=== PATIENT | male | born 1965 | race Caucasian/White ===

== ENCOUNTER → 2017-05-07 08:08 | Outpatient (CLI) | payer MEDICARE, MEDICAID ==
--- NOTE | 2017-05-09 08:51 | EMG ---
PATIENT:HEENA MORENO DATE OF SERVICE: 05/07/17 MEDICAL RECORD: [id number] DATE OF : 67 LOCATION: [facility] ADMISSION DATE: REFERRING PHYSICIAN: JOHN BEDOYA MD INTERPRETING PHYSICIAN: CAILIN LEWIS MD DATE OF SERVICE: 05/07/2017 Referred as an outpatient by Dr. Bedoya. ELECTROMYOGRAPHIC DATA: Electromyographic examination is limited to both lower extremities. In the right lower extremity, right peroneal motor stimulation elicits no reliable response. Right tibial motor stimulation elicits a compound motor action potential with a distal latency of 3.6 milliseconds, peak amplitude of 5 millivolts, and calculated conduction velocity of 39 meters per second. Antidromic right sural sensory stimulation elicits no reliable response. The right lower extremity H reflex recording at gastrocsoleus is absent. In the left lower extremity, left peroneal motor stimulation elicits a compound motor action potential with a distal latency of 3.9 milliseconds, peak amplitude of 3 millivolts, and calculated conduction velocity of 39 meters per second. Left tibial motor stimulation elicits a compound motor action potential with a distal latency of 4.5 milliseconds, peak amplitude of 5 millivolts, and calculated conduction velocity of 38 meters per second. Antidromic left sural sensory stimulation elicits no reliable response. The left lower extremity H reflex recording at gastrocsoleus is absent. Needle electrode examination is limited to both lower extremities as well. Muscles interrogated include the abductor hallucis, extensor digitorum brevis, abductor digiti quinti, tibialis anterior, medial gastrocnemius, vastus lateralis, semitendinosus, and gluteus jennifer. The intrinsic foot muscles as well as the distal leg muscles are severely atrophic. Insertional activity is markedly reduced in the intrinsic foot muscles bilaterally. In the tibialis anterior and medial gastrocnemius, there is marked increased insertional activity with positive sharp waves, complex repetitive discharges, and rare myotonic discharges in both tibialis anterior and to a lesser extent the medial gastrocnemius bilaterally. Insertional activity and spontaneous activity is essentially normal on proximal musculature. Motor unit potential morphology and the pattern of motor unit potential firing and recruitment demonstrates an absence of motor units firing at the intrinsic foot muscles, particularly in the right lower extremity and to a lesser extent in the left lower extremity. What muscles are observed are of low amplitude and polyphasic short-duration motor units. Same is true in the tibialis anterior and medial gastrocnemius bilaterally with low amplitude polyphasic short-duration motor units indicative of a myelopathic motor unit potential. INTERPRETATION: Electromyographic examination of both lower extremities was complex. 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 The study was requested to help sort out a new ELECTROMYGRAM/NERVE CONDUCTION [id number] HEENA MORENO weakness in the right foot and ankle. Because of the severity of underlying changes in both lower extremities, this study is not capable of adding further to that differential diagnosis. TRANSINT:[id number] Voice Confirmation ID: [id number] DOCUMENT ID: [id number] CAILIN LEWIS MD at 0851 CC: [id number] DICTATION DATE: 05/07/17930 HEEL ROOM SUPERVISOR: 05/07/17 1242 DEP CLI 05/07/17 [facility] [address] [place] [address]
== END | disposition home or self-care (01) ==
LOC: D.CN 08:08
DX: G71.0 Muscular dystrophy (principal)

== ENCOUNTER 2017-09-19 18:46 | Emergency (ER) | payer MEDICARE, MEDICAID | END 2017-09-20 00:12 | disposition home or self-care (01) | LOC: D.ER 18:46 | DX: K59.00 Constipation, unspecified (principal); K64.9 Unspecified hemorrhoids; F17.200 Nicotine dependence, unspecified, uncomplicated ==

== ENCOUNTER → 2018-09-04 13:02 | Outpatient (CLI) | payer MEDICARE, MEDICAID | END | disposition home or self-care (01) | LOC: D.CT 13:02 | DX: K63.5 Polyp of colon (principal) ==

== ENCOUNTER 2018-10-21 10:35 | Day surgery (SDC) | payer MEDICARE, MEDICAID ==
[~2018-10-21] VITALS: Ht 177.8 cm; Wt 74.4 kg
[2018-10-21] MEDS ORDERED: HYDROCODON-ACE1 EA10 PO (11:14)
[2018-10-21 11:22] VITALS: BP 134/68; Ht 177.8 cm; Wt 74.4 kg
--- NOTE | 2018-10-21 14:10 | NUR ---
[id number] 8CC EPINEPHERINE CUTANEOUS IN COLON, 10CC ELEVIEW CUTANEOUS IN COLON.
--- NOTE | 2018-10-23 08:56 | OP ---
PATIENT NAME: HEENA MORENO MEDICAL RECORD: [id number] :67 LOCATION:D.OPS ADMISSION DATE: SURGEON: JESSICA IGNACIO MD DATE OF OPERATION: 10/21/2018 PRINCIPAL DIAGNOSIS: Multiple complex colon polyps. POSTOPERATIVE DIAGNOSIS: Multiple complex colon polyps. Please see description below. PROCEDURES: 1. Total colonoscopy to cecum. 2. Endoscopic mucosal resection polypectomies times 2. Epinephrine injection and Eleview injection were performed prior to snaring the pedunculated polyps. 3. Hot biopsy forceps polypectomy times 1. 4. Application of endoscopic clips times 1 for hemorrhage control. 5. Ablation of 5 polyps utilizing the argon plasma director mission with the right colon setting in the forced mode. One of these was within the appendiceal orifice. SURGEON: Jessica Ignacio MD BOOM CRANE OPERATOR: None. BLOOD LOSS: 50 cc. ANESTHESIA: IV sedation. COMPLICATIONS: None. The risks, possible complications, and alternatives to the procedure were explained to the patient. He elects to proceed. ENDOSCOPIC COURSE: The patient was conveyed to endoscopy suite electively on 10/21/2018. IV sedation was induced by the anesthesia staff. The patient was placed in the Licona position. A digital rectal examination was performed. The prostate was symmetric, slightly enlarged, and without nodules. A colonoscope was inserted through the anus. Immediately, we identified a lot of corn within the rectum, so I knew that the prep was going to be inadequate. I was able to advance the endoscope into the cecum however. Upon withdrawal, I irrigated and aspirated extensively. Normal imaging as well as narrow band imaging was utilized. I dragged the folds. Within the appendix, I tried to grasp a polyp that was actually within the lumen of the appendix. I was unable to do this as I wanted to perform a hot biopsy forceps polypectomy. Instead, I intended to ablate the polyp and see if I could lift it up to determine how large the polyp was. I utilized the argon plasma director mission; however, I could not get the polyp to lift up out of the appendiceal orifice. This polyp will need to be removed during a laparoscopic appendectomy procedure. I then continued to withdraw the endoscope. I irrigated and aspirated extensively. The pullback was greater than a 30-minute pullback. One small polyp was identified and was removed utilizing the hot biopsy forceps polypectomy technique. This was an 8-mm polyp. There were 2 much larger polyps. The 30-cm polyp was the smaller of two and was 2.5-cm pedunculated polyp. I advanced a sclerotherapy needle and injected epinephrine submucosally. I then injected Eleview submucosally with the same sclerotherapy needle. I then advanced a snare. I was able to place a snare OPERATIVE REPORT [id number] HEENA MORENO around the base of the polyp and snare the polyp off utilizing the coagulation and then the cut setting. There was a little bit of remaining polypoid tissue at the base of the polyp and this was ablated with the argon plasma director mission. I advanced an endoscopic retrieval net and was able to retrieve the polyp and withdraw it through the anus. I then readvanced the endoscope. The larger of the 2 polyps was a 3.0 cm pedunculated polyp. I injected through the sclerotherapy needle epinephrine submucosally and then Eleview submucosally. I then advanced an endoscopic snare around the stalk and utilizing the coagulation setting and then the cut setting, I was able to amputate the polyp. There was bleeding from the stump and this was controlled with the application of a single endoscopic clip. The endoscopic retrieval net was advanced. I was able to get the polyp into the bag and withdraw it out through the anus. I then readvanced the endoscope. There were 4 more small sessile polyps, which I elected to ablate with the argon plasma director mission. A retroflexed view was obtained in the rectum. I then unretroflexed the scope and removed it under direct vision. I will see the patient in my office in 2-3 weeks. I will discuss laparoscopic appendectomy with him. This will be laparoscopic appendectomy versus laparoscopic cecectomy in order to remove this appendiceal orifice polyp. I will plan for his next colonoscopy with the argon plasma director mission to take place in 2 years. TRANSINT:[id number] Voice Confirmation ID: [id number] DOCUMENT ID: [id number] JESSICA IGNACIO MD at 0856 CC: GLYNN SUN MD and JOHN BEDOYA MD [id number] DICTATION DATE: 10/21/18 1436 ESCROW CLERK: 10/21/18 1905 [facility] 10/21/18 [facility] [address] [place] [address]
== END 2018-10-21 15:37 | disposition home or self-care (01) ==
LOC: D.OPS 10:35
PROVIDERS: ATTEND Surgery
DX: D12.7 Benign neoplasm of rectosigmoid junction (principal); D12.5 Benign neoplasm of sigmoid colon; K63.5 Polyp of colon; Z01.812 Encounter for preprocedural laboratory examination

== ENCOUNTER → 2018-11-11 11:21 | Outpatient (CLI) | payer MEDICARE, MEDICAID ==
[~2018-11-11 11:21] MED LIST: HYDROCODON-ACE1 EA10 PO
== END | disposition home or self-care (01) ==
LOC: D.RT 11:21
DX: R06.09 Other forms of dyspnea (principal)

== ENCOUNTER 2018-12-17 07:24 | Day surgery (SDC) | payer MEDICARE, MEDICAID ==
[~2018-12-17] VITALS: Ht 175.3 cm; Wt 74.4 kg
[2018-12-17 08:22] VITALS: BP 133/71; Ht 175.3 cm; Wt 74.4 kg
--- NOTE | 2018-12-17 12:00 | NUR ---
REPORT TAKEN FROM Junior ROSA RN. PATIENT CARE ASSUMED AT THIS TIME. AT THIS TIME PATIENT IS ON BIPAP WITH FI02 AT 60%; O2 SAT OF 96%. ALL OTHER VSS.
--- NOTE | 2018-12-17 12:10 | NUR ---
FI02 DOWN TO 50% AT THIS TIME
--- NOTE | 2018-12-17 12:23 | NUR ---
PATIENT HAS TOLERATED FI02 AT 50% WELL; HAS MAINTAINED 02 SAT >94% FI02 DOWN TO 40% AT THIS TIME. WILL MONITOR.
--- NOTE | 2018-12-17 12:34 | NUR ---
BIPAP ON STANDBY AND PATIENT SWITCHED OVER TO HIGH FLOW CANNULA AT THIS TIME.
--- NOTE | 2018-12-17 14:31 | NUR ---
1330 PT WANTING TO SIT IN CHAIR AND THEN GO HOME. UMBILICAL DRESSING REINFORCED. SEROUS FLUID NOTED. IV RT AC .FLUIDS EMPTY. OFFERED PT SOMETHING TO EAT. REFUSED. PT VOIDED AND WANTED TO GO SMOKE. INSTRUCTIONS AND RX GIVEN TO PT
--- NOTE | 2018-12-17 14:33 | NUR ---
1400 IV REMOVED AND DRESSING APPLIED. INSTRUCTED PT ON POST OP APT AND DONT LIFT ANYTHING GREATER THAN 5LB
--- NOTE | 2018-12-17 16:06 | OP ---
PATIENT NAME: HEENA MORENO MEDICAL RECORD: [id number] :67 LOCATION:D.OPS ADMISSION DATE: SURGEON: JESSICA IGNACIO MD DATE OF OPERATION: 12/17/2018 PREOPERATIVE DIAGNOSIS: Appendiceal orifice polyp. POSTOPERATIVE DIAGNOSIS: Appendiceal orifice polyp. PROCEDURE: Laparoscopic appendectomy. SURGEON: Jessica Ignacio MD ASSOCIATE PROFESSOR OF PHILOSOPHY: None. BLOOD LOSS: Minimal. ANESTHESIA: General. COMPLICATIONS: None. The risks, possible complications and alternatives to the procedure were explained to the patient. He elects to proceed. The discussion specifically included, but was not limited to, bleeding requiring emergency reoperation, infection, intestinal injury, possible need for revisionary procedure, possible need for a right colectomy if the polyp is identified to represent an invasive malignancy. OPERATIVE COURSE: The patient was conveyed to the operating room electively on 12/17/2018. General anesthesia was induced by the anesthesia staff. The abdomen was sterilely prepped and draped. A small skin izzy was accomplished over Aguirre's point. A Veress needle was inserted. CO2 insufflation was begun. Once a sufficient pneumoperitoneum had been achieved, a 5-mm trocar was inserted in the left lower quadrant. Under direct internal vision, utilizing a television camera, the 12-mm trocar was inserted through an incision at the umbilicus and another 5-mm trocar was inserted through an incision in the right lower quadrant. During insertion of the Veress needle and all trocars, there appeared to have been no injury to the bowels, any intraperitoneal or retroperitoneal structures. The appendix was quite lengthy. I incised along the right white line of Toldt and folded the colon medially. I incised some of the retroperitoneal attachments to the cecum. I identified the appendix. I took down the mesoappendix utilizing the laparoscopic EnSeal device. I then identified the ileocecal valve. I stapled across the cecum with an Endo-JOANN type stapler with blue loads. The appendix was placed within a bag retrieval device and was withdrawn out through the 12-mm trocar site. The 12-mm trocar was replaced and the abdomen reinsufflated. I irrigated and aspirated in the right lower quadrant. There was no bleeding even at low pressure of 8. A topical hemostatic agent was applied to the suture line. The Anderson-Tay suture closure device and 0 Vicryl sutures were used to close the fascia at the umbilicus. All the trocars were removed and the abdomen desufflated. The skin at the umbilicus was closed with interrupted 4-0 Vicryl Rapide sutures. The other skin incisions were closed with interrupted intracuticular 3-0 OPERATIVE REPORT [id number] HEENA MORENO Vicryls. Benzoin and Steri-Strips were applied. The patient was then extubated and conveyed to post-anesthesia care unit where he was in stable condition. He will be dismissed home on [place] as well as [place]. I went to the outpatient department and there were no family members or acquaintances with him today. TRANSINT:[id number] Voice Confirmation ID: [id number] DOCUMENT ID: [id number] JESSICA IGNACIO MD at 1606 CC: [id number] DICTATION DATE: 12/17/18 1142 SPECIALTY TRANSFORMER ASSEMBLER: 12/17/18 1319 [facility] 12/17/18 [id number] [place] [address]
== END 2018-12-17 14:30 | disposition home or self-care (01) ==
LOC: D.OPS 07:24 → D.PAN 09:45 → D.OPS 11:15
PROVIDERS: ATTEND Surgery
DX: K63.5 Polyp of colon (principal); K37 Unspecified appendicitis; Z01.812 Encounter for preprocedural laboratory examination